=== PATIENT | female | born 1950 | race Caucasian/White ===

== ENCOUNTER 2021-10-26 20:32 | Emergency (ER) | payer MEDICARE ==
[~2021-10-26 20:32] MED LIST: AZITHROMYCIN250 MG PO; ELIQUIS5 MG PO; LOPRESSOR25 MG PO; NORVASC5 MG PO; PREDNISONE 10MG10 MG PO; PRINIVIL20 MG PO; SYNTHROID125 MCG PO
[2021-10-26 22:05] LABS: CORONAVIRUS 2019 SARS-COV-2 NEGATIVE (NEGATIVE); INFLUENZA A NAA NEGATIVE (NEGATIVE)
[2021-10-26 22:05] LABS: BILIRUBIN NEGATIVE (NEGATIVE); BLOOD NEGATIVE Ery/uL (NEGATIVE); CLARITY CLEAR (CLEAR); COLOR YELLOW (YELLOW); GLUCOSE (U) NORMAL (NORMAL); LEUKOCYTES TRACE Leu/uL (NEGATIVE); NITRITE NEGATIVE (NEGATIVE); PROTEIN NEGATIVE (NEGATIVE); SPECIFIC GRAVITY >=1.030 (1.001-1.030); UROBILINOGEN 0.2 mg/dL (0.2-1.0); pH 5.5 (5.0-9.0)
[2021-10-26 22:06] LABS: AMPHETAMINES NEGATIVE (NEGATIVE); BARBITURATES NEGATIVE (NEGATIVE); ECSTASY (MDMA) NEGATIVE (NEGATIVE); MARIJUANA (THC) NEGATIVE (NEGATIVE); METHADONE NEGATIVE (NEGATIVE); OPIATES NEGATIVE (NEGATIVE); OXYCODONE NEGATIVE (NEGATIVE)
[2021-10-26 22:09] LABS: BASOPHIL 0.6 % (0-2); HCT 46.9 % (37.0-47.0); LYMPHOCYTE 18.7 % (15-48); MCH 29.1 pg (25.0-31.0); MCV 90.9 fL (78.0-100.0); MONOCYTE 8.2 % (0-12); MPV 10.9 fL (6.0-9.5); NEUTROPHIL 71.1 % (41-80); NRBC 0; PLT 285 K/uL (150-400); RBC 5.16 M/uL (4.20-5.40); RDW 13.8 % (11.5-14.0); WBC 9.7 K/uL (4.0-10.5)
[2021-10-26 22:27] LABS: ALBUMIN 3.7 g/dL (3.4-5.0); BILIRUBIN - TOTAL 0.5 mg/dL (0.2-1.0); GLOBULIN (CALCULATION) 4.1 g/dL; TOTAL PROTEIN 7.8 g/dL (6.4-8.2)
[2021-10-26 22:28] LABS: BACTERIA 3+
[2021-10-26 22:29] LABS: CALCIUM OXALATE CRYSTALS TRACE
[2021-10-27] MEDS ORDERED: KEFLEX250 MG PO (00:44)
== END 2021-10-27 00:42 | disposition home or self-care (01) ==
LOC: FER 20:32
PROVIDERS: Nurse Practitioner Family
DX: N30.00 Acute cystitis without hematuria (principal); R55 Syncope and collapse; I10 Essential (primary) hypertension; I48.91 Unspecified atrial fibrillation; F17.210 Nicotine dependence, cigarettes, uncomplicated; Z79.01 Long term (current) use of anticoagulants; Z20.822 Contact with and (suspected) exposure to COVID-19
CPT/HCPCS: 36415; 70450; 71045; 80053; 80305; 81001; 84484; 85025; 87088; 93005; J7030; U0002